=== PATIENT | female | born 1955 | race Caucasian/White ===

== ENCOUNTER 2017-09-18 09:05 | Day surgery (SDC) | payer OTHER ==
[2017-09-18] MEDS ORDERED: MIDAZOLAM 1 MG/ML 2 ML INJ ×2 (11:16)
[2017-09-18] MEDS ORDERED: FENTAnyl 50 MCG/ML VIAL (11:16)
== END 2017-09-18 14:59 | disposition home or self-care (01) ==
LOC: GIL 09:05
DX: Z12.11 Encounter for screening for malignant neoplasm of colon (principal); K64.8 Other hemorrhoids; E11.9 Type 2 diabetes mellitus without complications; I10 Essential (primary) hypertension
CPT/HCPCS: 45378; 82962